=== PATIENT | male | born 1975 | race Hispanic/Latino ===

== ENCOUNTER 2018-01-11 05:48 | Day surgery (SDC) | payer BC ==
[2018-01-08 12:29] VITALS: BMI 52.2
[2018-01-11] MEDS ORDERED: Fentanyl 100 MCG/2 ML VIAL ONE (07:24)
[2018-01-11 10:04] LABS: #Basophils 0.1 thou/uL (0.0-0.2); #Eosinphils 0.1 thou/uL (0.0-0.7); #Lymphocytes 2.7 thou/uL (1.20-3.40); #Monocytes 0.6 thou/uL (0.11-0.59); #Neutrophils 6.1 thou/uL (1.40-6.50); %Basophils 0.6 % (0.0-1.0); %Eosinophils 1.4 % (0.0-10.0); %Lymphocytes 28.1 % (21.0-51.0); %Monocytes 6.6 % (0.0-10.0); %Neutrophils 63.3 % (42.0-75.0); Hemoglobin 17.5 g/dL (14.0-18.0); Mean Corpuscular HGB CONC 32.2 g/dL (32.0-36.0); Mean Corpuscular Hemoglobin 30.6 pg (27.0-31.0); Mean Corpuscular Volume 95.2 fl (80.0-94.0); Mean Platelet Volume 9.1 fL (7.4-10.4); Platelet Count 215 thou/uL (130-400); RBC Distribution Width 12.2 % (11.5-14.5); Red Blood Cell (RBC) Count 5.72 mill/uL (4.70-6.10); White Blood Cell (WBC) Count 9.6 thou/uL (4.8-10.8)
--- NOTE | 2018-01-11 13:08 | OP ---
DATE OF PROCEDURE: 01/11/2018 SURGEON: Terry Stone M.D. PREOPERATIVE DIAGNOSES: 1. History of intermittent rectal bleeding with past history of hemorrhoids. 2. The patient is having of preoperative upper and lower endoscopy at the request of bariatric surge on, Dr. Moise Lezama, an [facility] physician in [place]. POSTOPERATIVE DIAGNOSES: 1. Esophagogastroduodenoscopy notable for a small hiatal hernia with the hiatus at 40 cm and GE junc tion proximal gastric folds at 38 cm. There was LA grade B inflammation here. Biopsies were taken t o rule out short segment Garrett's. This has the appearance of reflux esophagitis. 2. Normal stomach. Biopsies were taken for H. pylori in light of the fact that he is going to have bariatric surgery. 3. Normal duodenum. 4. Colonoscopy revealed internal hemorrhoids. There were 3 polyps, 1 in the right, 2 in the sigmoid , all less than 5 mm, removed by snare polypectomy. RECOMMENDATIONS: 1. PPI therapy. 2. Await biopsies. 3. Antireflux regimen. 4. Await histopathology, repeat colonoscopy in 3 years if these are adenomas. ANESTHESIA: TIVA. PROCEDURE IN DETAIL: After the patient was informed of the risks, benefits, possible complications o f endoscopy including perforation, bleeding, reaction to medication, and aspiration, informed consent was obtained. The patient was brought to endoscopy suite where he was sedated in gradual fashion. Once he was comfortable, a bite block was placed in incisural orifice. The endoscope was advanced th rough the esophagus, stomach and second and third portion of duodenum. The esophagus was notable for a regular squamocolumnar junction with irritation and inflammation, ulceration consistent with LA gr sia B esophagitis. There was no overt Garrett's; however, biopsies were taken to rule out short segm ent Garrett's. There was a hiatal hernia with hiatus at 40 cm and the Z-line and proximal gastric fo lds around 38 cm. The stomach was entered and found to be normal in forward and retroflexed views. Otherwise, a biopsy was taken for Helicobacter pylori in light of the fact that he is going to have b ariatric surgery. The duodenum was entered and traversed to the third portion, which was normal. Th e scope was removed after the stomach was desufflated. The patient was turned in the room. A rectal examination was performed confirming internal hemorrhoi ds. The endoscope was advanced through the colon to cecum. There was a good prep. The appendiceal orifice and ileocecal valve were visualized and photographed. Scope was then slowly removed with goo d visualization of mucosa. Withdrawal time was about 7 minutes excluding time for polypectomy. Thre e small polyps removed, 2 in the sigmoid and ascending colon and 2 in the descending colon. These we re all less than 5 mm in size and sessile. They were submitted to pathology. Retroflexed views agai n confirmed hemorrhoids. The scope was removed. The patient tolerated the procedure well with no co mplications.
[2018-01-11] MEDS ORDERED: PROPOFOL 200 MG/20 ML VIAL ONE (15:08)
[2018-01-11] MEDS ORDERED: Lidocaine 1% PF 5 ML VIAL ONE (15:08)
== END 2018-01-11 10:00 | disposition home or self-care (01) ==
LOC: SDC 05:48
PROVIDERS: ATTEND Internal Medicine Gastroenterology
PROC: 0DBM8ZX Excision of Descending Colon, Via Natural or Artificial Opening Endoscopic, Diagnostic (ICD-10-PCS; principal; 2018-01-11)
PROC: 0DBN8ZX Excision of Sigmoid Colon, Via Natural or Artificial Opening Endoscopic, Diagnostic (ICD-10-PCS; principal; 2018-01-11)
PROC: 0DB58ZX Excision of Esophagus, Via Natural or Artificial Opening Endoscopic, Diagnostic (ICD-10-PCS; principal; 2018-01-11)
PROC: 0DB68ZX Excision of Stomach, Via Natural or Artificial Opening Endoscopic, Diagnostic (ICD-10-PCS; principal; 2018-01-11)
PROC: 0DBK8ZX Excision of Ascending Colon, Via Natural or Artificial Opening Endoscopic, Diagnostic (ICD-10-PCS; principal; 2018-01-11)
DX: D12.3 Benign neoplasm of transverse colon (principal); K63.5 Polyp of colon; K29.50 Unspecified chronic gastritis without bleeding; K44.9 Diaphragmatic hernia without obstruction or gangrene; B96.81 Helicobacter pylori [H. pylori] as the cause of diseases classified elsewhere; K22.70 Barrett's esophagus without dysplasia; K64.8 Other hemorrhoids; E66.01 Morbid (severe) obesity due to excess calories; Z68.43 Body mass index [BMI] 50.0-59.9, adult; Z79.84 Long term (current) use of oral hypoglycemic drugs; Z79.899 Other long term (current) drug therapy; Z98.890 Other specified postprocedural states; Z87.891 Personal history of nicotine dependence
CPT/HCPCS: 36415; 85025; 88305; 88312; 88313; J2001; J2704; J3010